=== PATIENT | male | born 1965 | race African-American/Black ===

== ENCOUNTER 2017-11-03 21:10 | Emergency (ER) | payer MEDICAID ==
[~2017-11-03] VITALS: Ht 185.4 cm; Wt 136.4 kg
[2017-11-03 21:14] VITALS: Ht 185.4 cm; Wt 136.4 kg
[2017-11-03] MEDS ORDERED: BENZTROPINE ME0.5 MG (21:16)
[2017-11-03] MEDS ORDERED: FLOMAX0.4 MG (21:16)
[2017-11-03] MEDS ORDERED: DEMADEX10 MG (21:16)
[2017-11-03] MEDS ORDERED: PRADAXA75 MG (21:17)
[2017-11-03] MEDS ORDERED: NOVOLOG100 U/M1 (21:17)
[2017-11-03] MEDS ORDERED: LISINOPRIL2.5 MG (21:17)
[2017-11-03] MEDS ORDERED: ZYPREXA2.5 MG (21:17)
[2017-11-03] MEDS ORDERED: ZOCOR5 MG (21:17)
[2017-11-04 00:04] LABS: HEMATOCRIT 35.9 % (42.0-54.0); HEMOGLOBIN 11.4 g/dL (13.5-17.5); MCH 27.5 pg (26.0-34.0); MCHC 31.8 g/dL (31.0-37.0); MCV 86.5 fL (80.0-100.0); MEAN PLATELET VOLUME 7.8 fL (7.4-10.4); PLATELET COUNT 359 10x3/uL (130-400); RBC 4.15 10x6/uL (4.20-6.10); RDW 13.9 % (11.5-14.5); WBC 8.7 10x3/uL (4.8-10.8)
[2017-11-04 00:19] LABS: ALBUMIN 3.1 g/dL (3.4-5.0); ALKALINE PHOSPHATASE 112 U/L (46-116); ALT (SGPT) 29 U/L (10-68); BILIRUBIN - TOTAL 0.24 mg/dL (0.2-1.3); CALC OSMOLALITY 278 mosm/kg (275-300); CALCIUM 8.8 mg/dL (8.5-10.1); CARBON DIOXIDE 31.7 mmol/L (21.0-32.0); CHLORIDE - SERUM 105 mmol/L (98-107); CREATININE - SERUM 0.9 mg/dL (0.6-1.3); GLUCOSE 95 mg/dL (74-106); POTASSIUM - SERUM 3.5 mmol/L (3.5-5.1); SODIUM 140 mmol/L (136-145); UREA NITROGEN 13 mg/dL (7-18); eGFR NON AFRICAN AMERICAN > 90 mL/min (90-120)
[2017-11-04] MEDS ORDERED: VENTOLIN HFA18 GM INH (02:14)
[2017-11-04] MEDS ORDERED: VIBRAMYCIN 100100 MG PO (02:14)
[2017-11-04 03:00] VITALS: BP 132/85
== END 2017-11-04 03:35 | disposition home or self-care (01) ==
LOC: D.ER 21:10
PROVIDERS: Family Medicine
DX: R05 Cough (principal); E11.9 Type 2 diabetes mellitus without complications; I10 Essential (primary) hypertension

== ENCOUNTER 2018-09-15 20:41 | Inpatient (IN) | payer OTHER ==
[~2018-09-15] VITALS: Ht 185.4 cm; Wt 116.4 kg
[~2018-09-15 20:41] MED LIST: BENZTROPINE ME0.5 MG; DEMADEX10 MG; FLOMAX0.4 MG; LISINOPRIL2.5 MG; NOVOLOG100 U/M1; PRADAXA75 MG; VENTOLIN HFA18 GM INH; VIBRAMYCIN 100100 MG PO; ZOCOR5 MG; ZYPREXA2.5 MG
[2018-09-15 21:51] LABS: BASOPHILS 0 % (0-2); EOSINOPHILS 2.5 % (0-7); HEMATOCRIT 42.6 % (42.0-54.0); HEMOGLOBIN 14.2 g/dL (13.5-17.5); IMMATURE GRANULOCYTES 0.1 % (0-5); LYMPHOCYTES 24.9 % (15-50); MCH 30.3 pg (26.0-34.0); MCHC 33.3 g/dL (31.0-37.0); MEAN PLATELET VOLUME 8.7 fL (7.4-10.4); MONOCYTES 8.5 % (2-11); RBC 4.68 10x6/uL (4.20-6.10); RDW 13.6 % (11.5-14.5); WBC 9.1 10x3/uL (4.8-10.8)
[2018-09-15 21:55] LABS: PLATELET COUNT 234 10x3/uL (130-400)
[2018-09-15 22:11] LABS: APTT 36.7 SECONDS (22.8-39.4); INR 1.1 (0.85-1.17); PROTIME 13.7 SECONDS (11.6-15.0)
[2018-09-15 22:12] LABS: D-DIMER-QUANTITATIVE 0.39 ug/mLFEU (0.20-0.54)
[2018-09-15 22:34] LABS: ALBUMIN 3.1 g/dL (3.4-5.0); ALKALINE PHOSPHATASE 135 U/L (46-116); ALT (SGPT) 30 U/L (10-68); BILIRUBIN - TOTAL 0.24 mg/dL (0.2-1.3); CALC OSMOLALITY 279 mosm/kg (275-300); CARBON DIOXIDE 35.6 mmol/L (21.0-32.0); CHLORIDE - SERUM 100 mmol/L (98-107); CREATININE - SERUM 1.1 mg/dL (0.6-1.3); GLUCOSE 102 mg/dL (74-106); POTASSIUM - SERUM 3.6 mmol/L (3.5-5.1); PROTEIN - SERUM 7.1 g/dL (6.4-8.2); SODIUM 141 mmol/L (136-145); UREA NITROGEN 11 mg/dL (7-18); eGFR NON AFRICAN AMERICAN 75 mL/min (90-120)
[2018-09-15 22:36] LABS: TROPONIN-I 0.028 ng/mL (0.000-0.060)
[2018-09-16] MEDS ORDERED: PRINIVIL20 MG PO (01:14)
[2018-09-16] MEDS ORDERED: PROTONIX40 MG PO (01:14)
[2018-09-16] MEDS ORDERED: PRADAXA75 MG PO (01:15)
[2018-09-16] MEDS ORDERED: FLOMAX0.4 MG PO (01:15)
[2018-09-16] MEDS ORDERED: ZOCOR10 MG PO (01:15)
[2018-09-16] MEDS ORDERED: LANTUS INSULIN10 ML SC (01:15)
[2018-09-16] MEDS ORDERED: DEMADEX20 MG PO (01:15)
[2018-09-16] MEDS ORDERED: HALDOL5 MG/ML IM (01:17)
[2018-09-16] MEDS ORDERED: BENZTROPINE ME0.5 MG PO (01:17)
[2018-09-16] MEDS ORDERED: TRAZODONE HCL150 MG PO (01:17)
[2018-09-16] MEDS ORDERED: ZYPREXA20 MG PO (01:17)
--- NOTE | 2018-09-16 01:44 | NUR ---
ARRIVES FROM THE ER VIA TO [address] WELL UP FROM AND TO BED WITH STABLE GAIT. SKIN WARM AND DRY AND LCTA PULSES INTACT AND BOWEL SOUNDS TIMES 4 FLUSHED IV TO RT HAND AND BED IS LOW AND LOCKED SRX2 AND CALL LIGHT PROVIDED ATTEMPTED TO ATTAIN HISTORY AND PT WAS UNABLE TO GIVE ONE STATED "YES I TAKE SOME PILLS SOMETIMES"
[2018-09-16 03:26] VITALS: BP 135/85; BMI 33.8
[2018-09-16 04:00] VITALS: BP 135/85
[2018-09-16 05:27] VITALS: BP 128/72
[2018-09-16 06:54] LABS: BASOPHILS 0 % (0-2); EOSINOPHILS 2.9 % (0-7); HEMATOCRIT 43.8 % (42.0-54.0); HEMOGLOBIN 14.3 g/dL (13.5-17.5); IMMATURE GRANULOCYTES 0.3 % (0-5); LYMPHOCYTES 25.4 % (15-50); MCH 29.5 pg (26.0-34.0); MCHC 32.6 g/dL (31.0-37.0); MCV 90.5 fL (80.0-100.0); MEAN PLATELET VOLUME 8.7 fL (7.4-10.4); NEUTROPHILS 60.4 % (40-80); PLATELET COUNT 239 10x3/uL (130-400); RBC 4.84 10x6/uL (4.20-6.10); RDW 13.7 % (11.5-14.5); WBC 7.9 10x3/uL (4.8-10.8)
--- NOTE | 2018-09-16 06:55 | NUR ---
RECEIVED REPORT FROM [facility] AND CARE ASSUMMED. HE IS ALERT ABLE TO VOICE SIMPLE NEEDS. CL IN REACH RESP EVEN WITHOUT LABOR. PLAN OF CARE REVIEWED AND SAFETY PRECAUTIONS ARE IN PLACE. HE HAS URINAL.
[2018-09-16 07:23] LABS: CALC OSMOLALITY 280 mosm/kg (275-300); CALCIUM 8.7 mg/dL (8.5-10.1); CARBON DIOXIDE 34.2 mmol/L (21.0-32.0); CHLORIDE - SERUM 103 mmol/L (98-107); CREATININE - SERUM 0.9 mg/dL (0.6-1.3); GLUCOSE 88 mg/dL (74-106); POTASSIUM - SERUM 3.4 mmol/L (3.5-5.1); SODIUM 142 mmol/L (136-145); TROPONIN-I 0.033 ng/mL (0.000-0.060); UREA NITROGEN 9 mg/dL (7-18); eGFR NON AFRICAN AMERICAN > 90 mL/min (90-120)
[2018-09-16 09:40] VITALS: BP 146/96
--- NOTE | 2018-09-16 10:15 | NUR ---
ALERT DENIES ANY CURRENT NEEDS. NO COUGHING. RESP EVEN WITHOUT LABOR
--- NOTE | 2018-09-16 13:00 | NUR ---
HE SPILLED HIS URINAL ON THE FLOOR WHICH WAS CLEANED. HE WAS OFFERED A GOWN TO GET IN BUT STATED NO THANKS. HIS CLOTHES DO NOT APPEAR TO BE WET,
[2018-09-16 13:18] VITALS: BP 130/76
[2018-09-16 13:20] VITALS: Ht 185.4 cm; Wt 116.4 kg
[2018-09-16 18:52] VITALS: BP 140/86
--- NOTE | 2018-09-16 19:14 | NUR ---
PT IN BED. DENIES NEEDS AT THIS TIME.
[2018-09-17 04:00] VITALS: BP 141/82
[2018-09-17 05:41] LABS: BASOPHILS 0 % (0-2); EOSINOPHILS 2.2 % (0-7); HEMOGLOBIN 14.4 g/dL (13.5-17.5); IMMATURE GRANULOCYTES 0.4 % (0-5); LYMPHOCYTES 23.5 % (15-50); MCH 29.5 pg (26.0-34.0); MCHC 32.7 g/dL (31.0-37.0); MCV 90.2 fL (80.0-100.0); MEAN PLATELET VOLUME 8.8 fL (7.4-10.4); MONOCYTES 8.9 % (2-11); PLATELET COUNT 230 10x3/uL (130-400); RBC 4.88 10x6/uL (4.20-6.10); RDW 13.6 % (11.5-14.5); WBC 7.4 10x3/uL (4.8-10.8)
[2018-09-17 06:11] LABS: CALC OSMOLALITY 276 mosm/kg (275-300); CALCIUM 8.8 mg/dL (8.5-10.1); CHLORIDE - SERUM 104 mmol/L (98-107); CREATININE - SERUM 0.8 mg/dL (0.6-1.3); GLUCOSE 96 mg/dL (74-106); POTASSIUM - SERUM 3.6 mmol/L (3.5-5.1); SODIUM 140 mmol/L (136-145); UREA NITROGEN 7 mg/dL (7-18); eGFR NON AFRICAN AMERICAN > 90 mL/min (90-120)
--- NOTE | 2018-09-17 07:00 | NUR ---
REPORT RECEIVED FROM [facility] AND CARE ASSUMMED. IN BED ALERT ANSWERS QUESTIONS WITH MAINLY ONE WORD LIKE YEAH. STATES HE HAS HAD TWO BM'S. SALINE LOCK RIGHT HAND. CL IN REACH. ABDOMEN IS SOFT WITH BOWEL SOUNDS PRESENT DENIES ANY ABDOMINAL PAIN
[2018-09-17 08:27] VITALS: BP 128/83
--- NOTE | 2018-09-17 10:06 | MORECARE ---
CASE MANAGEMENT DISCHARGE SUMMARY PATIENT: EDWIN KELLER UNIT: [id number] ADM DATE: 09/16/18 AGE: 53 : 69 SEX: M ROOM/BED: D.2106 AUTHOR: JUS FARIAS PHYSICIAN: REFERRING PHYSICIAN: DANIELLE SUAREZ MD DATE OF SERVICE: 09/17/18 Discharge Plan Patient Name: EDWIN KELLER Facility: [facility]:[place] : 1965 Planned Disposition: Other Type of Facility Anticipated Discharge Date: 09/17/18 Discharge Date: Expected LOS: 1 Initial Reviewer: [email or web address] Initial Review Date: 09/17/2018 Generated: 09/17/18 11:06 am DCPIA - Discharge Planning Initial Assessment Updated by [email or web address]: Wesly Sanches on 09/17/18 10:04 am * Is the patient Alert and Oriented? Yes * How many steps to enter\exit or inside your home? NONE * PCP UNKNOWN * Pharmacy [facility] * Preadmission Environment Correction * [facility] [place], [place] [phone] * ADLs Partial Dependent * Partial ADLs (Assistance needed) Medication Management * Equipment None * Other Equipment NO MEDICAL EQUIPMENT PROVIDER PREFERENCE * List name and contact numbers for known caregivers / representatives who currently or will assist patient after discharge: STEPH KELLER, MOM, JEIMY BASS [facility] NURSE, * Verbal permission to speak to the caregivers and representatives has been obtained from the patient. Yes * Community resources currently utilized Other * Please name any agencies selected above. [facility] DAY [facility], FRIDAY THRU FRIDAY 7:30 AM TO 4 PM * Additional services required to return to the preadmission environment? No * Can the patient safely return to the preadmission environment? Yes * Has this patient been hospitalized within the prior 30 days at any hospital? No Patient Name: EDWIN KELLER Page 14759 at 1006 All edits/amendments must be made on the electronic document DICTATION DATE: 09/17/18 1005 RIDING DOUBLE: ALANA 09/17/18 1005 RPT#: [id number] DC DATE: STATUS: ADM IN [facility] [address] [place] [address] END OF REPORT
--- NOTE | 2018-09-17 10:13 | MORECARE ---
CASE MANAGEMENT DISCHARGE SUMMARY PATIENT: EDWIN KELLER UNIT: [id number] ADM DATE: 09/16/18 AGE: 53 : 69 SEX: M ROOM/BED: D.2106 AUTHOR: DINORA,DOC PHYSICIAN: REFERRING PHYSICIAN: DANIELLE SUAREZ MD DATE OF SERVICE: 09/17/18 Discharge Plan Patient Name: EDWIN KELLER Facility: [facility]:[place] : 1965 Planned Disposition: Other Type of Facility Anticipated Discharge Date: 09/17/18 Discharge Date: Expected LOS: 1 Initial Reviewer: [email or web address] Initial Review Date: 09/17/2018 Generated: 09/17/18 11:13 am Comments DCP- Discharge Planning Updated by [email or web address]: Wesly Sanches on 09/17/18 9:[address] Patient Name: EDWIN KELLER Admission Status: ER Accout number: [id number] Admission Date: 09-16-2018 : 1965 Admission Diagnosis: Attending: DANIELLE SUAREZ Current LOS: 1 Anticipated DC Date: 09-17-2018 Planned Disposition: Other Type of Facility Primary Insurance: ARTOTALCRE PLANNED EXTERNAL [facility] [place] Discharge Planning Comments: CM RECEIVED DISCHARGE ORDER, MET WITH PT IN ROOM TO DISCUSS DISCHARGE PLANNING AND NEEDS. PT REPORTS LIVING AT [facility] FOR TWO YEARS, IT IS A [facility] MENTAL HE[facility] HALFWAY. PT ATTENDS DAY TREATMENT ON . [facility] PROVIDES PT HIS MEDICATIONS AT PRESCRIBED TIMES, PT IS OTHERWISE INDEPENDENT IN HIS DAILY LIVING. PT HAS NO MEDICAL EQUIPMENT AND NO OUTSIDE SERVICES ASSISTING IN THE HOME. CM DISCUSSED AVAILABILITY OF HOME HEALTH, REHAB SERVICES AND MEDICAL EQUIPMENT. PT DENIES DISCHARGE NEEDS, REPORTS [facility] WILL PICK HIM UP FOR DISCHARGE HOME AND ASKED CM TO CALL AND ARRANGE TRANSPORTATION HOME TODAY. CM CALLED [facility] MANAGER MARKET RESEARCH NUMBER, , RECEIVED CALL BACK FROM [facility] WHO INFORMED CM THAT IT IS THE September AND THEY HAVE LIMITED STAFF FOR TRANSPORTATION. CM ADVISED PT HAS BEEN DISCHARGED FROM HOSPITAL. [facility] INFORMED CM THAT NURSE REPORT NEEDS TO BE CALLED TO JEIMY BASS WHO WILL NOTIFY HER TO ARRANGE TRANSPORTATION. CM PROVIDED BEDSIDE NURSE WITH NURSE REPORT NUMBER AND TO REQUEST RECREATION TEACHER TRANSPORTATION FROM [facility] NURSE, JEIMY BASS AT [phone]. Product Ambassador: Wesly Sanches DCPIA - Discharge Planning Initial Assessment Updated by [email or web address]: Wesly Sanches on 09/17/18 10:04 am * Is the patient Alert and Oriented? Yes * How many steps to enter\exit or inside your home? NONE * PCP UNKNOWN * Pharmacy [facility] * Preadmission Environment Care Home * Facility Name [facility], [facility], [place] [phone] * ADLs Partial Dependent * Partial ADLs (Assistance needed) Medication Management * Equipment None * Other Equipment NO MEDICAL EQUIPMENT PROVIDER PREFERENCE * List name and contact numbers for known caregivers / representatives who currently or will assist patient after discharge: STEPH KELLER, MOM, JEIMY BASS SGT NURSE, * Verbal permission to speak to the caregivers and representatives has been obtained from the patient. Yes * Community resources currently utilized Other * Please name any agencies selected above. MENTAL HEALTH DAY TREATMENT, FRIDAY THRU FRIDAY 7:30 AM TO 4 PM * Additional services required to return to the preadmission environment? No * Can the patient safely return to the preadmission environment? Yes * Has this patient been hospitalized within the prior 30 days at any hospital? No Last DP export: 09/17/18 9:06 am Patient Name: EDWIN KELLER Page 71989 at 1013 All edits/amendments must be made on the electronic document DICTATION DATE: 09/17/18 1013 JEWEL STAKER: ALANA 09/17/18 1013 RPT#: [id number] DC DATE: STATUS: ADM IN [facility] [address] [place] [address] END OF REPORT
--- NOTE | 2018-09-17 10:30 | NUR ---
DISCHARGE PAPERS EXPLAINED TO HIM AND HE SIGNED. NOTIFIED JEIMY WHO IS NURSE AT [facility] WHERE HE LIVES AND REPORT WAS CALLED TO HER AND SHE WILL SEND TRANSPORT FOR HIM. VSS. HE DENIES ANY NEEDS.
--- NOTE | 2018-09-17 11:17 | NUR ---
SALINE LOCK TO RIGHT HAND D/C WITH CATH INTACT NO BLEEDING. ALERT DENIES ANY NEEDS. [facility] IR[facility] IS HERE AT THIS TIME FOR TRANSPORT COPY OF HIS DISCHARGE PAPERS GIVEN TO HER. TELEMENTRY RETURNED TO [employer] REPAIRER. VSS. RESP EVEN WITHOUT LABOR.
--- NOTE | 2018-09-18 08:55 | MORECARE ---
CASE MANAGEMENT DISCHARGE SUMMARY PATIENT: EDWIN KELLER UNIT: [id number] ADM DATE: 09/16/18 AGE: 53 : 69 SEX: M ROOM/BED: D.2106 AUTHOR: DINORA,DOC PHYSICIAN: REFERRING PHYSICIAN: DANIELLE SUAREZ MD DATE OF SERVICE: 09/18/18 Discharge Plan Patient Name: EDWIN KELLER Facility: [facility]:[place] : 1965 Planned Disposition: Other Type of Facility Anticipated Discharge Date: 09/17/18 Discharge Date: 09/17/2018 Expected LOS: 1 Initial Reviewer: [email or web address] Initial Review Date: 09/17/2018 Generated: 09/18/18 9:54 am Comments DCP- Discharge Planning Updated by [email or web address]: Wesly Sanches on 09/17/18 9:[address] Patient Name: EDWIN KELLER Admission Status: ER Accout number: [id number] Admission Date: 09-16-2018 : 1965 Admission Diagnosis: Attending: DANEILLE SUAREZ Current LOS: 1 Anticipated DC Date: 09-17-2018 Planned Disposition: Other Type of Facility Primary Insurance: ARTOTALCRE PLANNED EXTERNAL PROVIDER: [facility] Discharge Planning Comments: CM RECEIVED DISCHARGE ORDER, MET WITH PT IN ROOM TO DISCUSS DISCHARGE PLANNING AND NEEDS. PT REPORTS LIVING AT [facility] FOR TWO YEARS, IT IS A [facility] MENTAL HEALTH SENIOR LIVING. PT ATTENDS DAY TREATMENT . [facility] PROVIDES PT HIS MEDICATIONS AT PRESCRIBED TIMES, PT IS OTHERWISE INDEPENDENT IN HIS DAILY LIVING. PT HAS NO MEDICAL EQUIPMENT AND NO OUTSIDE SERVICES ASSISTING IN THE HOME. CM DISCUSSED AVAILABILITY OF HOME HEALTH, REHAB SERVICES AND MEDICAL EQUIPMENT. PT DENIES DISCHARGE NEEDS, REPORTS [facility] WILL PICK HIM UP FOR DISCHARGE HOME AND ASKED CM TO CALL AND ARRANGE TRANSPORTATION HOME TODAY. CM CALLED [facility] SENIOR GRANT WRITER NUMBER, , RECEIVED CALL BACK FROM [facility] WHO INFORMED CM THAT IT IS THE September AND THEY HAVE LIMITED STAFF FOR TRANSPORTATION. CM ADVISED PT HAS BEEN DISCHARGED FROM HOSPITAL. [facility] INFORMED CM THAT NURSE REPORT NEEDS TO BE CALLED TO JEIMY BASS WHO WILL NOTIFY HER TO ARRANGE TRANSPORTATION. CM PROVIDED BEDSIDE NURSE WITH NURSE REPORT NUMBER AND TO REQUEST UNIVERSAL GRINDER OPERATOR TRANSPORTATION FROM [facility] NURSE, JEIMY BASS AT [phone]. Senior Project Manager Engineering: Wesly Sanches DCPIA - Discharge Planning Initial Assessment Updated by [id number]: Wesly Sanches on 09/17/18 10:04 am * Is the patient Alert and Oriented? Yes * How many steps to enter\exit or inside your home? NONE * PCP UNKNOWN * Pharmacy [facility] * Preadmission Environment Retirement * [facility], [place] [phone] * ADLs Partial Dependent * Partial ADLs (Assistance needed) Medication Management * Equipment None * Other Equipment NO MEDICAL EQUIPMENT PROVIDER PREFERENCE * List name and contact numbers for known caregivers / representatives who currently or will assist patient after discharge: STEPH KELLER, MOM, JEIMY BASS, SGT NURSE, * Verbal permission to speak to the caregivers and representatives has been obtained from the patient. Yes * Community resources currently utilized Other * Please name any agencies selected above. MENTAL HEALTH DAY TREATMENT, FRIDAY THRU FRIDAY 7:30 AM TO 4 PM * Additional services required to return to the preadmission environment? No * Can the patient safely return to the preadmission environment? Yes * Has this patient been hospitalized within the prior 30 days at any hospital? No Last DP export: 09/17/18 9:13 am Patient Name: EDWIN KELLER Page 29510 at 0855 All edits/amendments must be made on the electronic document DICTATION DATE: 09/18/1854 SHUTTLE BUGGY OPERATOR: ALANA 09/18/18 0854 RPT#: [id number] DC DATE:09/17/18 STATUS: DIS IN [facility] [address] [place] [address] END OF REPORT
== END 2018-09-17 11:19 | disposition home or self-care (01) | DRG 391 ==
LOC: D.ER 20:41 → D.M2 09-16 00:34
PROVIDERS: Family Medicine; ADMIT Internal Medicine Nephrology; ATTEND Internal Medicine Nephrology
DX: K59.00 Constipation, unspecified (principal); J18.9 Pneumonia, unspecified organism; R04.2 Hemoptysis; F17.213 Nicotine dependence, cigarettes, with withdrawal; E11.9 Type 2 diabetes mellitus without complications; I10 Essential (primary) hypertension; E87.6 Hypokalemia; E78.5 Hyperlipidemia, unspecified; K21.9 Gastro-esophageal reflux disease without esophagitis; F32.9 Major depressive disorder, single episode, unspecified

== ENCOUNTER 2019-01-06 23:31 | Emergency (ER) | payer OTHER ==
[~2019-01-06] VITALS: Ht 185.4 cm; Wt 154.5 kg
[~2019-01-06 23:31] MED LIST changes: +BENZTROPINE ME0.5 MG PO; +DEMADEX20 MG PO; +FLOMAX0.4 MG PO; +HALDOL5 MG/ML IM; +LANTUS INSULIN10 ML SC; +PRADAXA75 MG PO; +PRINIVIL20 MG PO; +PROTONIX40 MG PO; +TRAZODONE HCL150 MG PO; +ZOCOR10 MG PO; +ZYPREXA20 MG PO
[2019-01-06 23:39] VITALS: Ht 185.4 cm; Wt 154.5 kg
[2019-01-06] MEDS ORDERED: PRADAXA75 MG PO (23:40)
[2019-01-06] MEDS ORDERED: ZOCOR20 MG PO (23:40)
[2019-01-06] MEDS ORDERED: DEMADEX20 MG PO (23:40)
--- NOTE | 2019-01-06 23:58 | NUR ---
DR SHEPPARD NOTIFIED AND REVIEWED PT'S BEHAVIOR AND ASSESSMENT RESULTS. PT IS A LOW RISK PER DR SHEPPARD. DR SHEPPARD STATED TO GIVE RESOURCES TO PT AT TIME OF DISCHARGE. NO FURTHER ORDERS AT THIS TIME. RESOURCES REVIEWED WITH PT AND HE VERBALIZED UNDERSTANDING.
[2019-01-07 00:05] LABS: HEMATOCRIT 49.1 % (42.0-54.0); HEMOGLOBIN 15.5 g/dL (13.5-17.5); LYMPHOCYTES 26.3 % (15-50); MCH 29.1 pg (26.0-34.0); MCHC 31.6 g/dL (31.0-37.0); MCV 92.1 fL (80.0-100.0); MEAN PLATELET VOLUME 8.3 fL (7.4-10.4); NEUTROPHILS 66.5 % (40-80); PLATELET COUNT 246 10x3/uL (130-400); RBC 5.33 10x6/uL (4.20-6.10); RDW 13.2 % (11.5-14.5); WBC 8.5 10x3/uL (4.8-10.8)
[2019-01-07 00:15] LABS: APPEARANCE CLEAR (CLEAR); CALC OSMOLALITY 278 mosm/kg (275-300); CALCIUM 8.8 mg/dL (8.5-10.1); CHLORIDE - SERUM 102 mmol/L (98-107); COLOR YELLOW (YELLOW); GLUCOSE 124 mg/dL (74-106); POTASSIUM - SERUM 3.1 mmol/L (3.5-5.1); SODIUM 140 mmol/L (136-145); UDS - AMPHET NEGATIVE QUAL (NEGATIVE); UDS - BARB NEGATIVE QUAL (NEGATIVE); UDS - BENZO NEGATIVE QUAL (NEGATIVE); UDS - COCAINE NEGATIVE QUAL (NEGATIVE); UDS - OPIATE NEGATIVE QUAL (NEGATIVE); UDS - PCP NEGATIVE QUAL (NEGATIVE); UDS - THC NEGATIVE QUAL (NEGATIVE); UREA NITROGEN 11 mg/dL (7-18); eGFR NON AFRICAN AMERICAN 84 mL/min (90-120)
[2019-01-07 00:16] LABS: BILIRUBIN NEGATIVE (NEGATIVE); GLUCOSE NEGATIVE (NEGATIVE); KETONE NEGATIVE (NEGATIVE); NITRITE NEGATIVE (NEGATIVE); PROTEIN 1+ mg/dL (NEGATIVE); UROBILINOGEN NORMAL (NORMAL)
[2019-01-07 00:17] LABS: BACTERIA FEW /hpf (NEGATIVE); EPITHELIAL CELLS 0-5 /hpf (0-5); WHITE CELLS - URINE 0-5 /hpf (NEGATIVE)
[2019-01-07 00:19] LABS: ALBUMIN 3.3 g/dL (3.4-5.0); ALKALINE PHOSPHATASE 158 U/L (46-116); ALT (SGPT) 30 U/L (10-68); BILIRUBIN - TOTAL 0.27 mg/dL (0.2-1.3); MAGNESIUM - SERUM 1.7 mg/dL (1.8-2.4); PROTEIN - SERUM 7.5 g/dL (6.4-8.2)
[2019-01-07 04:30] VITALS: BP 143/90
== END 2019-01-07 04:30 | disposition home or self-care (01) ==
LOC: D.ER 23:31
PROVIDERS: Family Medicine
DX: R45.851 Suicidal ideations (principal)

== ENCOUNTER 2019-05-15 18:42 | Inpatient (IN) | payer OTHER ==
[~2019-05-15] VITALS: Ht 185.4 cm; Wt 151.0 kg
[~2019-05-15 18:42] MED LIST changes: +ZOCOR20 MG PO
--- NOTE | 2019-05-15 19:02 | NUR ---
REPORT GIVEN TO LIGIA ARIAS, AT THIS TIME UTILIZING SBAR FORMAT.
[2019-05-15 19:11] LABS: BASOPHILS 0 % (0-2); EOSINOPHILS 0.2 % (0-7); HEMATOCRIT 49.8 % (42.0-54.0); HEMOGLOBIN 15.1 g/dL (13.5-17.5); IMMATURE GRANULOCYTES 0.3 % (0-5); LYMPHOCYTES 8.4 % (15-50); MCH 28.8 pg (26.0-34.0); MCHC 30.3 g/dL (31.0-37.0); MEAN PLATELET VOLUME 8.8 fL (7.4-10.4); MONOCYTES 7.3 % (2-11); NEUTROPHILS 83.8 % (40-80); PLATELET COUNT 245 10x3/uL (130-400); RBC 5.24 10x6/uL (4.20-6.10); RDW 15.6 % (11.5-14.5); WBC 15.2 10x3/uL (4.8-10.8)
[2019-05-15 19:20] LABS: APTT 38.5 SECONDS (22.8-39.4); CALC OSMOLALITY 284 mosm/kg (275-300); CALCIUM 8.8 mg/dL (8.5-10.1); CARBON DIOXIDE 37.9 mmol/L (21.0-32.0); CHLORIDE - SERUM 102 mmol/L (98-107); CREATININE - SERUM 1.4 mg/dL (0.6-1.3); GLUCOSE 110 mg/dL (74-106); INR 1.19 (0.85-1.17); POTASSIUM - SERUM 3.5 mmol/L (3.5-5.1); SODIUM 143 mmol/L (136-145); UREA NITROGEN 9 mg/dL (7-18); eGFR NON AFRICAN AMERICAN 57 mL/min (90-120)
[2019-05-15 19:37] LABS: ALBUMIN 2.8 g/dL (3.4-5.0); ALKALINE PHOSPHATASE 117 U/L (30-120); ALT (SGPT) 36 U/L (10-68); CKMB 0.7 U/L (0.0-3.6); CREATINE KINASE 121 UL (21-232); PRO BNP 984 pg/mL (0-125); PROTEIN - SERUM 7.1 g/dL (6.4-8.2)
[2019-05-15 19:39] VITALS: BP 135/76
--- NOTE | 2019-05-15 19:40 | NUR ---
PT RESTING ON BED. 5L O2 VIA NC IN PLACE. PT DENIES NEEDS. CALL LIGHT IN REACH.
--- NOTE | 2019-05-15 20:21 | NUR ---
PT UPDATED ON PLAN OF CARE. NO S/S OF ACUTE DISTRESS NOTED. O2 SAT 95% ON 5L VIA NC.
[2019-05-15 20:30] VITALS: BP 136/79
--- NOTE | 2019-05-15 20:40 | NUR ---
RT AT PT BEDSIDE
--- NOTE | 2019-05-15 22:23 | NUR ---
PT ARRIVED ON UNIT VIA STRETCHER ESCORTED BY ER NURSE. POSITIONED IN BED FOR COMFORT. ORIENTED TO ROOM AND CALL LIGHT.
[2019-05-15] MEDS ORDERED: MULTI-DAY VITAM1 TAB PO (22:32)
[2019-05-15] MEDS ORDERED: COMBIVENT RESPIM4 GM INH (22:33)
[2019-05-15 22:59] VITALS: BP 127/78; BMI 44.0
[2019-05-16] VITALS: BP 127/78
--- NOTE | 2019-05-16 01:07 | NUR ---
ADMISSION ASSESSMENT AND HISTORY COMPLETE.
[2019-05-16 04:00] VITALS: BP 114/71
[2019-05-16 06:30] LABS: BASOPHILS 0.1 % (0-2); EOSINOPHILS 0 % (0-7); HEMATOCRIT 51.4 % (42.0-54.0); HEMOGLOBIN 15.5 g/dL (13.5-17.5); IMMATURE GRANULOCYTES 0.3 % (0-5); LYMPHOCYTES 3.7 % (15-50); MCH 28.1 pg (26.0-34.0); MCHC 30.2 g/dL (31.0-37.0); MCV 93.3 fL (80.0-100.0); MEAN PLATELET VOLUME 8.9 fL (7.4-10.4); MONOCYTES 0.5 % (2-11); NEUTROPHILS 95.4 % (40-80); PLATELET COUNT 263 10x3/uL (130-400); RBC 5.51 10x6/uL (4.20-6.10); RDW 15.6 % (11.5-14.5); WBC 14.4 10x3/uL (4.8-10.8)
[2019-05-16 06:35] LABS: CALC OSMOLALITY 283 mosm/kg (275-300); CALCIUM 9.2 mg/dL (8.5-10.1); CHLORIDE - SERUM 103 mmol/L (98-107); CREATININE - SERUM 0.9 mg/dL (0.6-1.3); GLUCOSE 145 mg/dL (74-106); MAGNESIUM - SERUM 2.2 mg/dL (1.8-2.4); PHOSPHOROUS 3.7 mg/dL (2.5-4.9); SODIUM 141 mmol/L (136-145); UREA NITROGEN 13 mg/dL (7-18); eGFR NON AFRICAN AMERICAN > 90 mL/min (90-120)
[2019-05-16 07:11] LABS: APTT 40.8 SECONDS (22.8-39.4); INR 1.21 (0.85-1.17); PROTIME 15.2 SECONDS (11.6-15.0)
[2019-05-16 07:52] VITALS: BP 119/78
--- NOTE | 2019-05-16 08:39 | NUR ---
ALERT AND ORIENTED. LUNGS WITH BILATERALLY WHEEZES. HEART SOUNDS S1 AND S2 HEARD IN ALL JACOB. BOWEL SOUNDS ACTIVE X 4. SKIN INTACT WITHOUT REDNESS. IV TO LEFT HAND PATENT WITHOUT REDNESS. REQUESTED AND GIVEN DIET SPRITE. DENIES FURTHER NEEDS. BED LOW. CALL FRIAS AND PERSONAL ITEMS IN REACH. WILL CONTINUE TO MONITOR.
--- NOTE | 2019-05-16 11:04 | NUR ---
SPOKE WITH SULEIMAN LARA TO NOTIFY THAT PATIENT WITH BILATERAL WHEEZES AND TO ASK IF NEED TO HOLD FLUIDS. STATES TO HOLD FLUIDS FOR NOW.
[2019-05-16 11:54] VITALS: BP 138/75
--- NOTE | 2019-05-16 12:34 | NUR ---
RESTING IN BED. DENIES NEEDS. WILL CONTINUE TO MONITOR.
--- NOTE | 2019-05-16 14:12 | NUR ---
NEW CLEAN URINAL GIVEN TO PATIENT AND EDUCATION PROVIDED. SPUTUM CUP GIVEN TO PATIENT AND EDUCATION PROVIDED.
[2019-05-16 16:07] VITALS: BP 143/81
[2019-05-16 16:39] LABS: BILIRUBIN NEGATIVE (NEGATIVE); GLUCOSE NEGATIVE (NEGATIVE); KETONE NEGATIVE (NEGATIVE); NITRITE NEGATIVE (NEGATIVE); UROBILINOGEN NORMAL (NORMAL)
[2019-05-16 16:40] LABS: BACTERIA FEW /hpf (NEGATIVE); RED CELLS - URINE 0-5 /hpf (0-5); WHITE CELLS - URINE 0-5 /hpf (NEGATIVE)
--- NOTE | 2019-05-16 18:48 | NUR ---
RESTING IN BED. DENIES NEEDS. BED LOW. CALL FRIAS AND PERSONAL ITEMS IN REACH.
--- NOTE | 2019-05-16 19:00 | NUR ---
BEDSIDE REPORT RECEIVED AND CARE OF PT ASSUMED. PT LYING IN LOW SMITH'S POSITION WITH EYES CLOSED. IV TO LEFT HAND SALINE LOCKED. TELEMETRY IN PLACE AND READING SR AT THIS ASSESSMENT. EXPIRATORY WHEEZES AUSCULTATED ON BILATERAL LUNGS. WILL MONITOR FOR NEEDS.
[2019-05-16 20:00] VITALS: BP 139/70
--- NOTE | 2019-05-16 20:17 | NUR ---
HS MEDICATIONS GIVEN. FSBS 187 THIS CHECK REQUIRING COVERAGE WITH 4 UNITS OF INSULIN PER SLIDING SCALE. GAVE X2 APPLESAUCE FOR HS SNACK PER DIET ORDER.
--- NOTE | 2019-05-16 20:55 | NUR ---
PT'S MOTHER CALLED TO CHECK ON HIM. TRANSFERRED TO CALL INTO ROOM.
[2019-05-17] VITALS: BP 139/61
[2019-05-17 04:00] VITALS: BP 127/75
[2019-05-17 05:06] LABS: HEMOGLOBIN 14.7 g/dL (13.5-17.5); MCH 28.5 pg (26.0-34.0); MCHC 30.6 g/dL (31.0-37.0); MCV 93.2 fL (80.0-100.0); MEAN PLATELET VOLUME 8.9 fL (7.4-10.4); PLATELET COUNT 306 10x3/uL (130-400); RBC 5.15 10x6/uL (4.20-6.10); RDW 15.4 % (11.5-14.5)
[2019-05-17 05:11] LABS: ALBUMIN 2.5 g/dL (3.4-5.0); ALKALINE PHOSPHATASE 109 U/L (30-120); BILIRUBIN - TOTAL 0.34 mg/dL (0.2-1.3); CALCIUM 8.7 mg/dL (8.5-10.1); CARBON DIOXIDE 36.7 mmol/L (21.0-32.0); CHLORIDE - SERUM 99 mmol/L (98-107); CREATININE - SERUM 0.9 mg/dL (0.6-1.3); GLUCOSE 144 mg/dL (74-106); MAGNESIUM - SERUM 2.2 mg/dL (1.8-2.4); PHOSPHOROUS 3.1 mg/dL (2.5-4.9); POTASSIUM - SERUM 3.8 mmol/L (3.5-5.1); PROTEIN - SERUM 6.9 g/dL (6.4-8.2); SODIUM 138 mmol/L (136-145); eGFR NON AFRICAN AMERICAN > 90 mL/min (90-120)
[2019-05-17 05:12] LABS: ALT (SGPT) 26 U/L (10-68); CALC OSMOLALITY 280 mosm/kg (275-300); UREA NITROGEN 19 mg/dL (7-18)
--- NOTE | 2019-05-17 07:30 | NUR ---
PATIENT LAYING IN BED AWAKE AND ORIENTED. CL IN REACH. NO NEEDS AT THIS TIME. WCTM
[2019-05-17 08:40] VITALS: BP 124/79
[2019-05-17 10:09] LABS: LYMPHOCYTES 7 % (15-50); MONOCYTES 5 % (2-11); NEUTROPHILS 81 % (40-80)
[2019-05-17 10:10] LABS: PLATELET ESTIMATE NORMAL; ROULEAUX OCC
--- NOTE | 2019-05-17 11:29 | NUR ---
PT DEAN OF GIRLS LIGHT TO ASK IF HE HAD A "HOLE OR DARK SPOT" IN HIS RIGHT INGUINAL AREA. NO HOLE OR DARK SPOT NOTICED. CL IN REACH. ECHO BEING PERFORMED. WCTM
--- NOTE | 2019-05-17 11:37 | NUR ---
JEIMY [phone] RN AT [facility].
[2019-05-17 12:12] VITALS: BP 123/69
[2019-05-17 13:05] VITALS: BMI 43.9
[2019-05-17 16:01] VITALS: BP 115/67
[2019-05-17 16:11] VITALS: Ht 185.4 cm; Wt 151.0 kg
--- NOTE | 2019-05-17 19:00 | NUR ---
BEDSIDE REPORT RECEIVED AND CARE OF PT ASSUMED. PT LYING IN LOW SMITH'S POSITION WATCHING TV. IV TO LEFT HAND PATENT WITH NS INFUSING AT 50 ML/HR. O2 IN USE VIA NC AT 4L. TELEMETRY IN PLACE PER ORDER AND READING SR W/ PAC'S AT THIS ASSESSMENT. WILL MONITOR FOR NEEDS.
--- NOTE | 2019-05-17 19:20 | NUR ---
GAVE HS SNACK OF APPLESAUCE AND CHOCOLATE PUDDING.
--- NOTE | 2019-05-17 19:50 | NUR ---
HS MEDICATIONS GIVEN TO INCLUDE 4 UNITS OF INSULIN FOR FSBS OF 179 PER SLIDING SCALE.
[2019-05-17 20:00] VITALS: BP 123/78
[2019-05-18] VITALS: BP 118/76
[2019-05-18 04:00] VITALS: BP 108/81
[2019-05-18 05:32] LABS: BASOPHILS 0.1 % (0-2); EOSINOPHILS 0 % (0-7); HEMATOCRIT 46.3 % (42.0-54.0); HEMOGLOBIN 14.1 g/dL (13.5-17.5); IMMATURE GRANULOCYTES 0.4 % (0-5); LYMPHOCYTES 4.2 % (15-50); MCH 28.3 pg (26.0-34.0); MCHC 30.5 g/dL (31.0-37.0); MEAN PLATELET VOLUME 8.9 fL (7.4-10.4); MONOCYTES 3.5 % (2-11); NEUTROPHILS 91.8 % (40-80); PLATELET COUNT 293 10x3/uL (130-400); RBC 4.98 10x6/uL (4.20-6.10); RDW 15.4 % (11.5-14.5); WBC 16.3 10x3/uL (4.8-10.8)
[2019-05-18 06:22] LABS: ALBUMIN 2.5 g/dL (3.4-5.0); ALKALINE PHOSPHATASE 98 U/L (30-120); ALT (SGPT) 25 U/L (10-68); BILIRUBIN - TOTAL 0.37 mg/dL (0.2-1.3); CALC OSMOLALITY 281 mosm/kg (275-300); CALCIUM 8.6 mg/dL (8.5-10.1); CARBON DIOXIDE 35.8 mmol/L (21.0-32.0); CHLORIDE - SERUM 101 mmol/L (98-107); CREATININE - SERUM 0.9 mg/dL (0.6-1.3); GLUCOSE 126 mg/dL (74-106); POTASSIUM - SERUM 4.1 mmol/L (3.5-5.1); SODIUM 139 mmol/L (136-145); UREA NITROGEN 19 mg/dL (7-18); eGFR NON AFRICAN AMERICAN > 90 mL/min (90-120)
[2019-05-18 06:24] LABS: PHOSPHOROUS 4.1 mg/dL (2.5-4.9)
[2019-05-18 09:11] VITALS: BP 122/72
[2019-05-18 13:31] VITALS: BP 129/94
[2019-05-18 18:08] VITALS: BP 128/79
--- NOTE | 2019-05-18 19:00 | NUR ---
BEDSIDE REPORT RECEIVED AND CARE OF PT ASSUMED. PT LYING IN SUPINE POSITION WITH EYES CLOSED. O2 IN USE VIA NC AT 4L. TELEMETRY IN PLACE AND READING SR W/ PAC'S AT THIS ASSESSMENT. WILL MONITOR FOR NEEDS.
[2019-05-18 20:00] VITALS: BP 132/64
--- NOTE | 2019-05-18 20:21 | NUR ---
HS MEDICATIONS GIVEN. FSBS 189 THIS CHECK REQUIRING COVERAGE WITH 4 UNITS OF INSULIN PER SLIDING SCALE.
[2019-05-19] VITALS: BP 135/90
[2019-05-19 04:00] VITALS: BP 137/87
[2019-05-19 04:34] LABS: BASOPHILS 0 % (0-2); EOSINOPHILS 0 % (0-7); HEMATOCRIT 46.2 % (42.0-54.0); HEMOGLOBIN 13.9 g/dL (13.5-17.5); IMMATURE GRANULOCYTES 0.4 % (0-5); LYMPHOCYTES 6.1 % (15-50); MCH 28.1 pg (26.0-34.0); MCHC 30.1 g/dL (31.0-37.0); MCV 93.3 fL (80.0-100.0); MEAN PLATELET VOLUME 9.1 fL (7.4-10.4); MONOCYTES 4.6 % (2-11); NEUTROPHILS 88.9 % (40-80); PLATELET COUNT 306 10x3/uL (130-400); RBC 4.95 10x6/uL (4.20-6.10); RDW 15.3 % (11.5-14.5); WBC 13.7 10x3/uL (4.8-10.8)
[2019-05-19 05:05] LABS: ALBUMIN 2.4 g/dL (3.4-5.0); ALKALINE PHOSPHATASE 88 U/L (30-120); ALT (SGPT) 27 U/L (10-68); BILIRUBIN - TOTAL 0.61 mg/dL (0.2-1.3); CALC OSMOLALITY 283 mosm/kg (275-300); CALCIUM 8.7 mg/dL (8.5-10.1); CARBON DIOXIDE 33.9 mmol/L (21.0-32.0); CHLORIDE - SERUM 103 mmol/L (98-107); CREATININE - SERUM 0.8 mg/dL (0.6-1.3); GLUCOSE 124 mg/dL (74-106); MAGNESIUM - SERUM 1.8 mg/dL (1.8-2.4); PHOSPHOROUS 3.3 mg/dL (2.5-4.9); POTASSIUM - SERUM 3.9 mmol/L (3.5-5.1); PROTEIN - SERUM 6.4 g/dL (6.4-8.2); SODIUM 141 mmol/L (136-145); UREA NITROGEN 18 mg/dL (7-18); eGFR NON AFRICAN AMERICAN > 90 mL/min (90-120)
--- NOTE | 2019-05-19 07:58 | NUR ---
RESTING IN BED, NO DISTRESS NOTED, O2 PER NC AT 4L, CONT TO MONITOR SUGARS AND RESP STATUS
--- NOTE | 2019-05-19 08:19 | EC ---
PATIENT:EDWIN KELLER DATE OF SERVICE: 05/15/19 SEX: M MEDICAL RECORD: [id number] DATE OF : [birth year] LOCATION:[facility] AGE OF PATIENT: 53 ADMISSION DATE: 05/15/19 REFERRING PHYSICIAN: INTERPRETING PHYSICIAN: ARTEMIO MARTINEZ MD ECHOCARDIOGRAM REPORT ECHO CHARGES 4 ECHO COMPLETE Date: 05/17/19 CLINICAL DIAGNOSIS: ELEVATED BNP,CHF ECHOCARDIOGRAPHIC MEASUREMENTS (adult normal given) AC root (d.<3.7cm) 3.2 cm LV Septum d (<1.2 cm> 1.6 cm Valve Excursion 1.5 cm LV Septum (systole) 1.9 cm Left Atria (s.<4.0cm> 3.8 cm LVPW d(<1.2cm) 1.8 cm RV (d.<2.3cm) 4.0 cm LVPW (sytole) 2.0 cm LV diastole(<5.6CM) 5.9 cm MV E-F(>70mm/sec) cm LV systole 4.6 cm LVOT Diameter 2.1 cm MV exc.(>10mm) 1.5 cm Est.ejection fraction (50-75%) % DOPPLER: LVIT cm/sec A 64.0 cm/sec E 55.0 cm/sec LA cm/sec RVSP 43 mmHg LVOT 89 cm/sec AOP1/2T m/s Asc. Ao 155 cm/sec RVOT 107 cm/sec RA cm/sec PA 125 cm/sec AV Gradient Peak 9.63 mmHg AV Mean 5.78 mmHg AV Area 1.9 cm MV Gradient Peak 4.09 mmHg MV Mean 2.02 mmHg MV Area cm COMMENTS: Kennel Operator: 2 VENUS GREWAL Stave And Bolt Equalizer: 3 Dr. Angelo TAPE# PACS Pericardial Effusion N DATE OF SERVICE: Adequate 2D, color flow imaging, spectral Doppler, and M-Mode LVH is present. LV internal dimension is normal. Wall motion is normal. EF is greater than or equal 55%. Aortic valve is sclerotic. No evidence of stenosis by Doppler interrogation. The left atrium is normal. Mitral valve shows no prolapse. Trace MR. Right-sided chambers are grossly normal. Mild TR. TRANSINT:[id number] Voice Confirmation ID: [id number] DOCUMENT ID: [id number] ECHOCARDIOGRAM REPORT [id number] EDWIN KELLER,ARTEMIO Santos MD at 0819 CC: [id number] DICTATION DATE: 05/18/19 1303 ENERGY CONSERVATION TECHNICIAN: 05/18/19 1510 ADM IN [place] [id number] [place] [id number]
--- NOTE | 2019-05-19 09:02 | MORECARE ---
CASE MANAGEMENT DISCHARGE SUMMARY PATIENT: EDWIN KELLER UNIT: [id number] ADM DATE: 05/15/19 AGE: 53 : [birth year] SEX: M ROOM/BED: D.2203 AUTHOR: JUS FARIAS PHYSICIAN: REFERRING PHYSICIAN: DANIELLE SUAREZ MD DATE OF SERVICE: 05/19/19 Discharge Plan Patient Name: EDWIN KELLER Facility: [facility]:[place] : 1965 Planned Disposition: Home or Self Care Anticipated Discharge Date: Discharge Date: Expected LOS: Initial Reviewer: [email or web address] Initial Review Date: 05/15/2019 Generated: 05/19/19 10:01 am Patient Name: EDWIN KELLER Page 88298 at 0902 All edits/amendments must be made on the electronic document DICTATION DATE: 05/19/19900 PASTE MAKER: ALANA 05/19/19900 RPT#: [id number] DC DATE: STATUS: ADM IN [facility] [address] [place] [address] END OF REPORT
--- NOTE | 2019-05-19 09:22 | MORECARE ---
CASE MANAGEMENT DISCHARGE SUMMARY PATIENT: EDWIN KELLER UNIT: [id number] ADM DATE: 05/15/19 AGE: 53 : [birth year] SEX: M ROOM/BED: D.2203 AUTHOR: JUS FARIAS PHYSICIAN: REFERRING PHYSICIAN: DANIELLE SUAREZ MD DATE OF SERVICE: 05/19/19 Discharge Plan Patient Name: EDWIN KELLER Facility: [facility]:[place] : 1965 Planned Disposition: Home or Self Care Anticipated Discharge Date: Discharge Date: Expected LOS: Initial Reviewer: [email or web address] Initial Review Date: 05/15/2019 Generated: 05/19/19 10:21 am DCPIA - Discharge Planning Initial Assessment Updated by [email or web address]: Carmen Knapp on 05/19/19 9:17 am * Is the patient Alert and Oriented? Yes * PCP can't remember * Pharmacy unsure * Preadmission Environment Senior Living * ADLs Partial Dependent * Partial ADLs (Assistance needed) Medication Management * Equipment Glucometer * List name and contact numbers for known caregivers / representatives who currently or will assist patient after discharge: nurse Josee Ferrer david [phone] * Verbal permission to speak to the caregivers and representatives has been obtained from the patient. N/A * Community resources currently utilized Other * Can the patient safely return to the preadmission environment? Yes * Has this patient been hospitalized within the prior 30 days at any hospital? No Last DP export: 05/19/19 8:02 am Patient Name: EDWIN KELLER Page 19680 at 0922 All edits/amendments must be made on the electronic document DICTATION DATE: 05/19/19920 CORRECTIONAL LIEUTENANT: ALANA 05/19/19920 RPT#: [id number] DC DATE: STATUS: ADM IN [facility] [address] [place] [address] END OF REPORT
--- NOTE | 2019-05-19 09:29 | MORECARE ---
CASE MANAGEMENT DISCHARGE SUMMARY PATIENT: EDWIN KELLER UNIT: [id number] ADM DATE: 05/15/19 AGE: 53 : 69 SEX: M ROOM/BED: D.2203 AUTHOR: DINORA,DOC PHYSICIAN: REFERRING PHYSICIAN: DANIELLE SUAREZ MD DATE OF SERVICE: 05/19/19 Discharge Plan Patient Name: EDWIN KELLER Facility: [facility]:[place] : 1965 Planned Disposition: Home or Self Care Anticipated Discharge Date: Discharge Date: Expected LOS: Initial Reviewer: [email or web address] Initial Review Date: 05/15/2019 Generated: 05/19/19 10:29 am Comments DCP- Discharge Planning Updated by [email or web address]: Carmen Knapp on 05/19/19 8:[address] Patient Name: EDWIN KELLER Admission Status: ER Accout number: [id number] Admission Date: 05-15-2019 : 1965 Admission Diagnosis: Attending: DANIELLE SUAREZ Current LOS: 4 Anticipated DC Date: Planned Disposition: Home or Self Care Primary Insurance: ARTOTALCRE Discharge Planning Comments: CM met with patient to complete initial dc planning assessment. CM educated patient on the CM role and verbal consent given by patient to complete assessment. Patient lives at a retirement? with a friend. At discharge patient plans to return home and feels this is a safe discharge. He could not remember who is Dr was but said Nurse Josee could. 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 CM discussed availability of home health, rehab services, and medical equipment. He has a glucometer at home. He is currently on 4L and does not have any resp DME at home. I will try to get a hold of Nurse Tripp to get some questions answered. CM will continue to follow and will assist as needed with dc plans/needs. Shaft Tender: Carmen Knapp DCPIA - Discharge Planning Initial Assessment Updated by [email or web address]: Carmen Knapp on 05/19/19 9:17 am * Is the patient Alert and Oriented? Yes * PCP can't remember * Pharmacy unsure * Preadmission Environment [facility] * ADLs Partial Dependent * Partial ADLs (Assistance needed) Medication Management * Equipment Glucometer * List name and contact numbers for known caregivers / representatives who currently or will assist patient after discharge: nurse Josee keller [phone] * Verbal permission to speak to the caregivers and representatives has been obtained from the patient. N/A * Community resources currently utilized Other * Can the patient safely return to the preadmission environment? Yes * Has this patient been hospitalized within the prior 30 days at any hospital? No Last DP export: 05/19/19 8:22 am Patient Name: EDWIN KELLER Page 14162 at 0929 All edits/amendments must be made on the electronic document DICTATION DATE: 05/19/19928 JOURNEYMAN PRESSMAN: ALANA 05/19/19928 RPT#: [id number] DC DATE: STATUS: ADM IN [facility] [address] [place] [address] END OF REPORT
[2019-05-19 09:53] VITALS: BP 132/81
[2019-05-19 13:11] VITALS: BP 137/86
[2019-05-19 17:02] VITALS: BP 131/78
[2019-05-19 20:00] VITALS: BP 131/89
--- NOTE | 2019-05-19 20:00 | NUR ---
ALERT RESTING IN BED, DENIES PAIN OR NEEDS AT THIS TIME, SEE SHIFT ASSESSMENT, CALL LIGHT IN REACH
[2019-05-20] VITALS: BP 131/88
[2019-05-20 04:00] VITALS: BP 128/88
[2019-05-20 05:50] LABS: BASOPHILS 0 % (0-2); EOSINOPHILS 0 % (0-7); HEMATOCRIT 49.5 % (42.0-54.0); HEMOGLOBIN 15.2 g/dL (13.5-17.5); IMMATURE GRANULOCYTES 0.6 % (0-5); MCH 28.4 pg (26.0-34.0); MCHC 30.7 g/dL (31.0-37.0); MCV 92.4 fL (80.0-100.0); MEAN PLATELET VOLUME 9.6 fL (7.4-10.4); MONOCYTES 5.8 % (2-11); NEUTROPHILS 84.6 % (40-80); PLATELET COUNT 330 10x3/uL (130-400); RBC 5.36 10x6/uL (4.20-6.10); RDW 15.1 % (11.5-14.5)
[2019-05-20 06:29] LABS: ALBUMIN 2.9 g/dL (3.4-5.0); ALKALINE PHOSPHATASE 103 U/L (30-120); BILIRUBIN - TOTAL 0.75 mg/dL (0.2-1.3); CALC OSMOLALITY 282 mosm/kg (275-300); CALCIUM 8.8 mg/dL (8.5-10.1); CARBON DIOXIDE 30.5 mmol/L (21.0-32.0); CHLORIDE - SERUM 101 mmol/L (98-107); CREATININE - SERUM 0.9 mg/dL (0.6-1.3); GLUCOSE 108 mg/dL (74-106); MAGNESIUM - SERUM 1.9 mg/dL (1.8-2.4); PHOSPHOROUS 4.1 mg/dL (2.5-4.9); POTASSIUM - SERUM 4.4 mmol/L (3.5-5.1); PROTEIN - SERUM 6.7 g/dL (6.4-8.2); SODIUM 140 mmol/L (136-145); UREA NITROGEN 20 mg/dL (7-18); eGFR NON AFRICAN AMERICAN > 90 mL/min (90-120)
[2019-05-20 06:34] LABS: ALT (SGPT) 49 U/L (10-68)
--- NOTE | 2019-05-20 09:15 | NUR ---
PATIENT SITTING UP IN CHAIR. NO NEEDS AT THIS TIME. TM
[2019-05-20 09:34] VITALS: BP 127/82
--- NOTE | 2019-05-20 12:00 | NUR ---
PATIENT BACK IN BED LAYING ON RIGHT SIDE. NO NEEDS AT THIS TIME. CL IN REACH. WCTM
--- NOTE | 2019-05-20 12:50 | MORECARE ---
CASE MANAGEMENT DISCHARGE SUMMARY PATIENT: EDWIN KELLER UNIT: [id number] ADM DATE: 05/15/19 AGE: 53 : 69 SEX: M ROOM/BED: D.2203 AUTHOR: DINORA,DOC PHYSICIAN: REFERRING PHYSICIAN: DANIELLE SUAREZ MD DATE OF SERVICE: 05/20/19 Discharge Plan Patient Name: EDWIN KELLER Facility: [facility]:[place] : 1965 Planned Disposition: Home or Self Care Anticipated Discharge Date: Discharge Date: Expected LOS: Initial Reviewer: [email or web address] Initial Review Date: 05/15/2019 Generated: 05/20/19 1:50 pm Comments DCP- Discharge Planning Updated by [email or web address]: Carmne Knapp on 05/20/19 11:[address] Josee with [facility] called and stated that the patients Dr Gamboa. He uses [facility]. Josee ([phone]) will be the one to arrange transportation when he is able to be discharged. DCP- Discharge Planning Updated by [email or web address]: Carmen Knapp on 05/19/19 8:[address] Patient Name: EDWIN KELLER Admission Status: ER Accout number: [id number] Admission Date: 05-15-2019 : 1965 Admission Diagnosis: Attending: DANIELLE SUAREZ Current LOS: 4 Anticipated DC Date: Planned Disposition: Home or Self Care Primary Insurance: [employer] Discharge Planning Comments: CM met with patient to complete initial dc planning assessment. CM educated patient on the CM role and verbal consent given by patient to complete assessment. Patient lives at a retirement? with a friend. At discharge patient plans to return home and feels this is a safe discharge. He could not remember who is Dr was but said Nurse Josee could. 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 CM discussed availability of home health, rehab services, and medical equipment. He has a glucometer at home. He is currently on 4L and does not have any resp DME at home. I will try to get a hold of Nurse Tripp to get some questions answered. CM will continue to follow and will assist as needed with dc plans/needs. Automation Qa Tester: Carmen Knapp DCPIA - Discharge Planning Initial Assessment Updated by [email or web address]: Carmen Knapp on 05/19/19 9:17 am * Is the patient Alert and Oriented? Yes * PCP can't remember * Pharmacy unsure * Preadmission Environment [facility] * ADLs Partial Dependent * Partial ADLs (Assistance needed) Medication Management * Equipment Glucometer * List name and contact numbers for known caregivers / representatives who currently or will assist patient after discharge: nurse Josee Ferrer david [phone] * Verbal permission to speak to the caregivers and representatives has been obtained from the patient. N/A * Community resources currently utilized Other * Can the patient safely return to the preadmission environment? Yes * Has this patient been hospitalized within the prior 30 days at any hospital? No Last DP export: 05/19/19 8:29 am Patient Name: EDWIN KELLER Page [id number] at 1250 All edits/amendments must be made on the electronic document DICTATION DATE: 05/20/19 1250 HOUSE RN: ALANA 05/20/19 1250 RPT#: [id number] NC DATE: STATUS: ADM IN [facility] [address] [place] [address] END OF REPORT
[2019-05-20 13:04] VITALS: BP 136/87
--- NOTE | 2019-05-20 15:09 | NUR ---
PATIENT WALKED 250 FT. PULSE OX READ 88 %. BACK IN ROOM CAME UP TO 92 %. CL IN REACH. WCTM
[2019-05-20 18:07] VITALS: BP 126/83
[2019-05-20 20:00] VITALS: BP 134/87
--- NOTE | 2019-05-20 20:00 | NUR ---
PATIENT RESTING IN BED WITH EYES CLOSED. NO ACUTE S/S OF DISTRESS. NO C/O AT THIS TIME. PATIENT HAS 2L OF O2 NASAL CANNULA PRN. PATIENT HAS A RIGHT HAND SALINE LOC. IV IS PATENT WITHOUT REDENSS, SWELLING, OR TENDERNESS. PATIENT HAS TELEMETRY: 84 BPM NORMAL SINUS. PATIENT USES URINAL AND IS UP WITH STANDBY ASSISTANCE. CALL LIGHT IN PLACE. WILL CONTINUE TO MONITOR.
[2019-05-21] VITALS: BP 119/54
[2019-05-21 04:00] VITALS: BP 121/76
[2019-05-21 04:14] LABS: BASOPHILS 0 % (0-2); EOSINOPHILS 0.4 % (0-7); HEMATOCRIT 48.6 % (42.0-54.0); HEMOGLOBIN 15.1 g/dL (13.5-17.5); IMMATURE GRANULOCYTES 0.7 % (0-5); LYMPHOCYTES 22.2 % (15-50); MCH 28.5 pg (26.0-34.0); MCHC 31.1 g/dL (31.0-37.0); MCV 91.9 fL (80.0-100.0); MEAN PLATELET VOLUME 9.1 fL (7.4-10.4); MONOCYTES 7.5 % (2-11); NEUTROPHILS 69.2 % (40-80); PLATELET COUNT 331 10x3/uL (130-400); RBC 5.29 10x6/uL (4.20-6.10); WBC 11.9 10x3/uL (4.8-10.8)
--- NOTE | 2019-05-21 04:16 | NUR ---
I have reviewed this patient and I concur with the Shift Assessment completed by the Licensed Practical Nurse today this shift.
[2019-05-21 04:42] LABS: ALBUMIN 2.6 g/dL (3.4-5.0); ALKALINE PHOSPHATASE 88 U/L (30-120); ALT (SGPT) 46 U/L (10-68); BILIRUBIN - TOTAL 0.71 mg/dL (0.2-1.3); CALC OSMOLALITY 282 mosm/kg (275-300); CALCIUM 8.6 mg/dL (8.5-10.1); CARBON DIOXIDE 35.2 mmol/L (21.0-32.0); CHLORIDE - SERUM 103 mmol/L (98-107); CREATININE - SERUM 0.8 mg/dL (0.6-1.3); GLUCOSE 93 mg/dL (74-106); MAGNESIUM - SERUM 1.7 mg/dL (1.8-2.4); PHOSPHOROUS 3.4 mg/dL (2.5-4.9); PROTEIN - SERUM 6.6 g/dL (6.4-8.2); SODIUM 141 mmol/L (136-145); UREA NITROGEN 17 mg/dL (7-18); eGFR NON AFRICAN AMERICAN > 90 mL/min (90-120)
[2019-05-21 04:46] LABS: POTASSIUM - SERUM 3.6 mmol/L (3.5-5.1)
--- NOTE | 2019-05-21 07:31 | NUR ---
PT IS RESTING IN BED WITH EYES CLOSED. RESPIRATIONS ARE EVEN AND UNLABORED. PT IS EASILY AROUSED WITH VERBAL STIMULATION. PT IS AAO X 4 UPON AROUSAL AND ANSWERS ALL QUESTIONS SLOWLY BUT APPROPRIATELY. PT DENIES PRESENCE OF PAIN/N/V/DYSPNEA/SOB. PT REPORTS BM ON 05/20/2019 AND DENIES PRESENCE OF PAIN/DISCOMFORT WITH DEFECATION. PT REPORTS COUGH AND STATES THAT THE COUGH IS NOT PRODUCTIVE BUT FREQUENT. BED IS IN THE LOWEST POSITION. CALL LIGHT AND BEDSIDE TABLE ARE WITHIN REACH. SIDE RAILS X 2. PT DENIES FURTHER NEEDS. WILL CONT TO MONITOR.
[2019-05-21 08:43] VITALS: BP 103/65
[2019-05-21] MEDS ORDERED: VIBRAMYCIN 100100 MG PO (11:16)
[2019-05-21] MEDS ORDERED: OMNICEF300 MG PO (11:16)
[2019-05-21] MEDS ORDERED: MUCINEX600 MG PO (11:17)
[2019-05-21] MEDS ORDERED: TESSALON PERLE100 MG PO (11:17)
[2019-05-21] MEDS ORDERED: PREDNISONE10 MG PO (11:17)
[2019-05-21] MEDS ORDERED: FLORAJEN3 CAPS460 MG PO (11:17)
[2019-05-21] MEDS ORDERED: PULMICORT0.5 MG/21 UPD (11:17)
[2019-05-21 12:12] VITALS: BP 132/81
--- NOTE | 2019-05-21 12:38 | NUR ---
PT SITTING IN BEDSIDE CHAIR. AAO X 4. PT DENIES PRESENCE OF PAIN/N/V/DYSPNEA AT THIS TIME. RESPIRATIONS ARE EVEN AND UNLABORED. CALL LIGHT AND BEDSIDE TABLE ARE WITIHN REACH. PT DENIES FURTHER NEEDS. WILL CONT TO MONITOR.
--- NOTE | 2019-05-21 13:48 | MORECARE ---
CASE MANAGEMENT DISCHARGE SUMMARY PATIENT: EDWIN KELLER UNIT: [id number] ADM DATE: 05/15/19 AGE: 53 : 69 SEX: M ROOM/BED: D.2203 AUTHOR: DINORA,DOC PHYSICIAN: REFERRING PHYSICIAN: DANIELLE SUAREZ MD DATE OF SERVICE: 05/21/19 Discharge Plan Patient Name: EDWIN KELLER Facility: [facility]:[place] : 1965 Planned Disposition: Home or Self Care Anticipated Discharge Date: Discharge Date: Expected LOS: Initial Reviewer: [email or web address] Initial Review Date: 05/15/2019 Generated: 05/21/19 2:48 pm Comments DCP- Discharge Planning Updated by [email or web address]: Carmen Knapp on 05/21/19 12:[address] PATIENT WILL BE DISCHARGING BACK HOME TO [facility]. JOSEE WILL BE HIS CAM MILLING MACHINE OPERATOR HOME. I WALKED HIM 250FT AND HIS POX WAS 93-95% ON ROOM AIR. I SPOKE WITH JOSEE ABOUT THE NEBULIZER AND HIS WALK TEST. SHE STATED THAT THEY USE [facility] AT [facility] AND SHE WILL GO PICK IT UP. JENNIFER RN WILL CALL HIS [facility] MED[facility] INTO HIS PHARM GENOA. CM WILL CONTINUE TO FOLLOW AND ASSIST NEEDED. SHE WILL PICK HIM UP AT 1400. DCP- Discharge Planning Updated by [email or web address]: Carmen Knapp on 05/20/19 11:[address] Josee with [facility] called and stated that the patients Dr Gamboa. He uses [facility]. Josee ([phone]) will be the one to arrange transportation when he is able to be discharged. DCP- Discharge Planning Updated by [email or web address]: Carmen Knapp on 05/19/19 8:[address] Patient Name: EDWIN KELLER Admission Status: ER Accout number: [id number] Admission Date: 05-15-2019 : 1965 Admission Diagnosis: Attending: DANIELLE SUAREZ Current LOS: 4 Anticipated DC Date: Planned Disposition: Home or Self Care Primary Insurance: [employer] Discharge Planning Comments: CM met with patient to complete initial dc planning assessment. CM educated patient on the CM role and verbal consent given by patient to complete assessment. Patient lives at a correction? with a friend. At discharge patient plans to return home and feels this is a safe discharge. He could not remember who is Dr was but said Nurse Josee could. 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 CM discussed availability of home health, rehab services, and medical equipment. He has a glucometer at home. He is currently on 4L and does not have any resp DME at home. I will try to get a hold of Nurse Tripp to get some questions answered. CM will continue to follow and will assist as needed with dc plans/needs. Window Clerk: Carmen Knapp DCPIA - Discharge Planning Initial Assessment Updated by [email or web address]: Carmen Knapp on 05/19/19 9:17 am * Is the patient Alert and Oriented? Yes * PCP can't remember * Pharmacy unsure * Preadmission Environment [facility] * ADLs Partial Dependent * Partial ADLs (Assistance needed) Medication Management * Equipment Glucometer * List name and contact numbers for known caregivers / representatives who currently or will assist patient after discharge: nurse Tripp Carissa keller [phone] * Verbal permission to speak to the caregivers and representatives has been obtained from the patient. N/A * Community resources currently utilized Other * Can the patient safely return to the preadmission environment? Yes * Has this patient been hospitalized within the prior 30 days at any hospital? No External [facility]iders [facility] Next Contact Date: Service Request Date: Service Type: Resolution: Reviewer: Comments: Last DP export: 05/20/19 11:50 am Patient Name: EDWIN KELLER Page [id number] at 1348 All edits/amendments must be made on the electronic document DICTATION DATE: 05/21/19 1348 CERTIFIED MEDICAL CODING SPECIALIST: ALANA 05/21/19 1348 RPT#: [id number] DC DATE: STATUS: ADM IN [facility] [address] [place] [address] END OF REPORT
--- NOTE | 2019-05-21 14:30 | NUR ---
PT TEST BORE HELPER AT BEDSIDE READY TO TRANSPORT PT BACK TO [facility]. PIV REMOVED FROM RIGHT HAND WITH CATHETER TIP INTACT. DRESSING APPLIED. ALL DISCHARGE INSTRUCTIONS COVERED WITH PT AND PT TEST BORE HELPER NO FURTHER QUESTIONS AND/OR CONCERNS. ALL DISCHARGE PAPERS SIGNED BY PT AND SIGNED DISCHARGE PAPERS PLACED IN PT CHART. PT REQUESTS TO AMBULATE FREELY FROM ROOM. PT STATES THAT HE HAS ALL BELONGINGS AND DENIES FURTHER NEEDS. PT THANKS THIS NURSE FOR CARE GIVEN.
--- NOTE | 2019-05-24 12:00 | MORECARE ---
CASE MANAGEMENT DISCHARGE SUMMARY PATIENT: EDWIN KELLER UNIT: [id number] ADM DATE: 05/15/19 AGE: 53 : 69 SEX: M ROOM/BED: D.2203 AUTHOR: DINORA,DOC PHYSICIAN: REFERRING PHYSICIAN: DANIELLE SUAREZ MD DATE OF SERVICE: 05/24/19 Discharge Plan Patient Name: EDWIN KELLER Facility: [facility]:[place] : 1965 Planned Disposition: Home or Self Care Anticipated Discharge Date: Discharge Date: 05/21/2019 Expected LOS: 0 Initial Reviewer: [email or web address] Initial Review Date: 05/15/2019 Generated: 05/24/19 1:00 pm Comments DCP- Discharge Planning Updated by [email or web address]: Carmen Knapp on 05/21/19 11:[address] PATIENT WILL BE DISCHARGING BACK HOME TO [place]. JOSEE WILL BE HIS ORE ROASTER HOME. I WALKED HIM 250FT AND HIS POX WAS 93-95% ON ROOM AIR. I SPOKE WITH JOSEE ABOUT THE NEBULIZER AND HIS WALK TEST. SHE STATED THAT THEY USE [facility] AT [facility] AND SHE WILL GO PICK IT UP. JENNIFER RN WILL CALL HIS [facility] MEDS INTO HIS PHARM GENOA. CM WILL CONTINUE TO FOLLOW AND ASSIST NEEDED. SHE WILL PICK HIM UP AT 1400. DCP- Discharge Planning Updated by [email or web address]: Carmen Knapp on 05/20/19 10:[address] Josee with [facility] called and stated that the patients Dr Gamboa. He uses [facility]. Josee ([phone]) will be the one to arrange transportation when he is able to be discharged. DCP- Discharge Planning Updated by [email or web address]: Carmen Knapp on 05/19/19 7:[address] Patient Name: EDWIN KELLER Admission Status: ER Accout number: [id number] Admission Date: 05-15-2019 : 1965 Admission Diagnosis: Attending: DANIELLE SUAREZ Current LOS: 4 Anticipated DC Date: Planned Disposition: Home or Self Care Primary Insurance: [employer] Discharge Planning Comments: CM met with patient to complete initial dc planning assessment. CM educated patient on the CM role and verbal consent given by patient to complete assessment. Patient lives at a halfway? with a friend. At discharge patient plans to return home and feels this is a safe discharge. He could not remember who is Dr was but said Nurse Tripp could. 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 CM discussed availability of home health, rehab services, and medical equipment. He has a glucometer at home. He is currently on 4L and does not have any resp DME at home. I will try to get a hold of Nurse Tripp to get some questions answered. CM will continue to follow and will assist as needed with dc plans/needs. Char Belt Operator: Carmen Knapp DCPIA - Discharge Planning Initial Assessment Updated by [email or web address]: Carmen Knapp on 05/19/19 9:17 am * Is the patient Alert and Oriented? Yes * PCP can't remember * Pharmacy unsure * Preadmission Environment [facility]-Term * ADLs Partial Dependent * Partial ADLs (Assistance needed) Medication Management * Equipment Glucometer * List name and contact numbers for known caregivers / representatives who currently or will assist patient after discharge: nurse Tripp Carissa keller [phone] * Verbal permission to speak to the caregivers and representatives has been obtained from the patient. N/A * Community resources currently utilized Other * Can the patient safely return to the preadmission environment? Yes * Has this patient been hospitalized within the prior 30 days at any hospital? No Last DP export: 05/21/19 11:48 am Patient Name: EDWIN KELLER Page [phone] at 1200 All edits/amendments must be made on the electronic document DICTATION DATE: 05/24/19 1200 DCS ENGINEER: ALANA 05/24/19 1200 RPT#: [id number] DC DATE:05/21/19 STATUS: DIS IN [facility] [address] [place] [address] END OF REPORT
== END 2019-05-21 15:25 | disposition home or self-care (01) | DRG 291 ==
LOC: D.ER 18:42 → D.MS 21:35
PROVIDERS: Emergency Medicine; Family Medicine; ADMIT Internal Medicine Nephrology; ATTEND Internal Medicine Nephrology
DX: I11.0 Hypertensive heart disease with heart failure (principal); J18.9 Pneumonia, unspecified organism; J96.21 Acute and chronic respiratory failure with hypoxia; G93.41 Metabolic encephalopathy; I50.31 Acute diastolic (congestive) heart failure; J96.22 Acute and chronic respiratory failure with hypercapnia; N39.0 Urinary tract infection, site not specified; Z68.41 Body mass index [BMI] 40.0-44.9, adult; F17.203 Nicotine dependence unspecified, with withdrawal; D68.9 Coagulation defect, unspecified; J44.1 Chronic obstructive pulmonary disease with (acute) exacerbation; E11.9 Type 2 diabetes mellitus without complications; G47.33 Obstructive sleep apnea (adult) (pediatric); K21.9 Gastro-esophageal reflux disease without esophagitis; N40.0 Benign prostatic hyperplasia without lower urinary tract symptoms; E66.01 Morbid (severe) obesity due to excess calories; F32.9 Major depressive disorder, single episode, unspecified; E78.5 Hyperlipidemia, unspecified; I48.0 Paroxysmal atrial fibrillation

== ENCOUNTER → 2019-07-30 09:04 | Outpatient (CLI) | payer OTHER ==
[2019-05-17 16:11] VITALS: BMI 43.9
[~2019-07-30 09:04] MED LIST changes: +COMBIVENT RESPIM4 GM INH; +FLORAJEN3 CAPS460 MG PO; +MUCINEX600 MG PO; +MULTI-DAY VITAM1 TAB PO; +OMNICEF300 MG PO; +PREDNISONE10 MG PO; +PULMICORT0.5 MG/21 UPD; +TESSALON PERLE100 MG PO
== END | disposition home or self-care (01) ==
LOC: D.RT 09:00
PROVIDERS: ATTEND Internal Medicine Pulmonary Disease
DX: J44.9 Chronic obstructive pulmonary disease, unspecified (principal); E11.9 Type 2 diabetes mellitus without complications; I10 Essential (primary) hypertension; K21.9 Gastro-esophageal reflux disease without esophagitis; F17.200 Nicotine dependence, unspecified, uncomplicated; E66.01 Morbid (severe) obesity due to excess calories; Z68.41 Body mass index [BMI] 40.0-44.9, adult; E78.5 Hyperlipidemia, unspecified

== ENCOUNTER → 2019-08-02 10:05 | Outpatient (CLI) | payer OTHER ==
[2019-05-17 16:11] VITALS: BMI 43.9
== END | disposition home or self-care (01) ==
LOC: D.RT 10:05
PROVIDERS: ATTEND Internal Medicine Pulmonary Disease
DX: J44.9 Chronic obstructive pulmonary disease, unspecified (principal); E11.9 Type 2 diabetes mellitus without complications; I10 Essential (primary) hypertension; K21.9 Gastro-esophageal reflux disease without esophagitis; F17.200 Nicotine dependence, unspecified, uncomplicated; E66.01 Morbid (severe) obesity due to excess calories; Z68.41 Body mass index [BMI] 40.0-44.9, adult

== ENCOUNTER → 2020-08-22 08:49 | Outpatient (CLI) | payer MEDICAID ==
[2019-05-17 16:11] VITALS: BMI 43.9
== END | disposition home or self-care (01) ==
LOC: D.RAD 08:49
PROVIDERS: ATTEND Internal Medicine Pulmonary Disease
DX: J44.9 Chronic obstructive pulmonary disease, unspecified (principal)